=== PATIENT | female | born 1980 | race Caucasian/White ===

== ENCOUNTER 2024-11-20 16:12 | Emergency (ER) | payer MEDICAID ==
[~2024-11-20] VITALS: Ht 162.6 cm; Wt 64.0 kg
[2024-11-20] MEDS ORDERED: ASPIRIN 325 MG TABLET ONE (16:53)
[2024-11-20] MEDS ORDERED: NITROGLYCERIN OINT 1 GM PACKET TP ONE (16:53)
[2024-11-20 16:57] LABS: PLATELET COUNT (AUTO) 227 K/uL (179-408); RED BLOOD CELL COUNT(AUTO) 5.35 MIL/uL (3.63-4.92); RED CELL DISTRIBUTION WIDTH 13.0 % (12.3-17.7); WHITE BLOOD COUNT (AUTO) 7.7 K/uL (3.8-11.8)
[2024-11-20] MEDS: NITROGLYCERIN OINT 1 GM PACKET TP ONE (17:02)
[2024-11-20] MEDS: ASPIRIN 325 MG TABLET PO ONE (17:02)
[2024-11-20 17:07] LABS: CREATININE 0.6 mg/dL (0.6-1.3); SODIUM SERUM 139 mmol/L (136-145); UREA NITROGEN, BLOOD 8 mg/dL (7-18)
[2024-11-20 17:13] LABS: ASPARTATE AMINOTRANSFERASE 19 U/L (15-37); TOTAL PROTEIN, SERUM 8.6 g/dL (6.4-8.2)
[2024-11-20] MEDS ORDERED: METOCLOPRAMIDE HCL 10 MG/2 ML VIAL ONE (18:22)
[2024-11-20] MEDS ORDERED: KETOROLAC TROMETHAMINE 30 MG INJ ONE (18:25)
[2024-11-20] MEDS: KETOROLAC TROMETHAMINE 15 MG INJ IVP ONE (18:31)
[2024-11-20] MEDS: METOCLOPRAMIDE HCL 10 MG/2 ML VIAL IV ONE (18:31)
[2024-11-20] MEDS ORDERED: PARO-154 PO (19:06)
[2024-11-20 19:45] VITALS: BP 130/89; TEMP 98.3; O2SAT 100
== END 2024-11-20 19:45 | disposition home or self-care (01) ==
LOC: ER 16:12
DX: R00.2 Palpitations (principal); R00.0 Tachycardia, unspecified; R07.9 Chest pain, unspecified; R11.0 Nausea; R42 Dizziness and giddiness; Z79.899 Other long term (current) drug therapy
CPT/HCPCS: 36415; 71045; 84484; 85025; 85730; A4606; A4663; J1885; J2765